=== PATIENT | female | born 1995 | race Caucasian/White ===

== ENCOUNTER 2020-07-28 13:40 | Outpatient (CLI) | payer MEDICARE, MEDICAID ==
[~2020-07-28 13:40] MED LIST: ONDA4TAB6 PO; SUCR1ORA2 PO
== END 2020-07-28 23:59 | disposition home or self-care (01) ==
LOC: RAD 13:40
PROVIDERS: ATTEND Family Medicine
DX: R13.14 Dysphagia, pharyngoesophageal phase (principal); G80.9 Cerebral palsy, unspecified; K21.9 Gastro-esophageal reflux disease without esophagitis
CPT/HCPCS: 74230